=== PATIENT | male | born 1960 | race Caucasian/White ===

== ENCOUNTER 2018-02-10 06:22 | Day surgery (SDC) | payer OTHER ==
[~2018-02-10] VITALS: Ht 185.4 cm; Wt 78.4 kg
[~2018-02-10 06:22] MED LIST: BUPR150SR PO; CIPR-278 PO; CLOT15C TP; CYCL10 PO; ESCI20TA PO; FLUT16H NASAL; IBUP-2070 PO; MONT10TA21 PO; OMEP20 PO; PRED10 PO; TEMA15CA PO; TRI115C TP
[2018-02-10] MEDS ORDERED: SODIUM CHLORIDE 0.9% 1,000 ML IV ONE ×2 (06:32→07:30)
[2018-02-10] MEDS ORDERED: ESCI10TA PO (07:15)
[2018-02-10] MEDS ORDERED: GABA-531 PO (07:15)
[2018-02-10] MEDS ORDERED: TRAZ-144 PO (07:15)
[2018-02-10] MEDS ORDERED: FAMO20 PO (07:15)
[2018-02-10] MEDS ORDERED: ALBU8.5H8 IH (07:15)
[2018-02-10] MEDS ORDERED: MOME13HF IH (07:15)
[2018-02-10] MEDS ORDERED: FentaNYL CITRATE-PF 100 MCG/2 ML VIAL ONE (08:16)
[2018-02-10] MEDS ORDERED: MIDAZOLAM HCL 2 MG/2 ML VIAL ONE (08:16)
== END 2018-02-10 09:10 | disposition home or self-care (01) ==
LOC: SURGERY 06:22
PROVIDERS: ATTEND Internal Medicine Critical Care Medicine
DX: J45.998 Other asthma (principal); E78.00 Pure hypercholesterolemia, unspecified; F17.210 Nicotine dependence, cigarettes, uncomplicated; Z53.8 Procedure and treatment not carried out for other reasons; Z72.89 Other problems related to lifestyle; Z79.899 Other long term (current) drug therapy
CPT/HCPCS: J2250; J3010; J7030

== ENCOUNTER 2018-03-12 06:29 | Day surgery (SDC) | payer OTHER ==
[~2018-03-12] VITALS: Ht 185.4 cm; Wt 78.2 kg
[~2018-03-12 06:29] MED LIST changes: +ALBU8.5H8 IH; -BUPR150SR PO; -CIPR-278 PO; -CLOT15C TP; -CYCL10 PO; +ESCI10TA PO; -ESCI20TA PO; +FAMO20 PO; +GABA-531 PO; -IBUP-2070 PO; +MOME13HF IH; -OMEP20 PO; -PRED10 PO; +SODIUM CHLORIDE 0.9% 1,000 ML IV ONE; -TEMA15CA PO; +TRAZ-144 PO; -TRI115C TP
[2018-03-12] MEDS ORDERED: LIDOCAINE HCL 2% 30 ML JELLY TP ONE ×2 (06:30)
[2018-03-12] MEDS ORDERED: LIDOCAINE HCL 4% 50 ML SOLUTION TP ONE ×2 (06:30)
[2018-03-12] MEDS ORDERED: BENZOCAINE 20% 50 MCG/SPRAY 57 GM TP ONE ×2 (06:30)
[2018-03-12] MEDS ORDERED: MIDAZOLAM HCL 2 MG/2 ML VIAL ONE (07:49)
[2018-03-12] MEDS ORDERED: FentaNYL CITRATE-PF 100 MCG/2 ML VIAL ONE (07:49)
[2018-03-12] MEDS ORDERED: MethylPREDNISolone SOD SUCC 125 MG/2 ML VIAL IVP ONE (09:15)
[2018-03-12] MEDS ORDERED: MethylPREDNISolone SOD SUCC 125 MG/2 ML VIAL ONE (09:28)
[2018-03-12] MEDS ORDERED: OXYGEN THERAPY IH SCH (20:00)
== END 2018-03-12 10:50 | disposition home or self-care (01) ==
LOC: SURGERY 06:29
PROVIDERS: ATTEND Internal Medicine Critical Care Medicine
DX: J38.4 Edema of larynx (principal); B37.0 Candidal stomatitis; F17.210 Nicotine dependence, cigarettes, uncomplicated; E78.00 Pure hypercholesterolemia, unspecified; Z72.89 Other problems related to lifestyle; Z79.899 Other long term (current) drug therapy
CPT/HCPCS: 31623; 31624; 71045; 87015; 87070; 87147; 87205; 87206; 87220; 88108; 88312; 94640; J2250; J2930; J3010; J7030; 87101